=== PATIENT | male | born 1990 | race Hispanic/Latino ===

== ENCOUNTER 2020-01-05 12:48 | Inpatient (IN) | payer OTHER ==
[2020-01-05] MEDS ORDERED: SODIUM CHLORIDE 0.9% 1000 ML 1,000 ML IV ONE ×2 (13:02→16:20)
--- NOTE | 2020-01-05 13:02 | Emergency Department Report ---
ED Psych HPI - General Stated Complaint: DELIRIOUS Time Seen by Provider: 01/05/20 12:58 Source: patient, RN notes reviewed, old records reviewed Mode of arrival: Stretcher Limitations: Altered Mental Status - History of Present Illness Initial Comments: CC: "Delirium" HPI: Mr. Waldron is a 29 yo male with hx of marijuana and opioid abuse, HTN who presents with abnormal beahvior. He was admitted to [facility] 3 days ago. 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 He continues to be altered during 3 days of psychiatric inpatient tr eatment. Oriented to name only. He thinks he is at [facility]. He denies pain. Denies SI/HI. Has not slept according to sitter. Hx obtained from brother Nathen For the past couple of years, has abused pain pills. Used Suboxone and methadone in . Had a relapse. Took oxycontin, xanax and marijuana. Has been hallucinating for 2 days. Brother took him to [facility] on Thursday. He was then transferred from [facility]. No hx of IV drug abuse. No known hx of mental health disorder. Did use alcohol intermittently. MD Complaint: altered mental status -: Gradual, days(s) (3) Associated Psychiatric Symptoms: other (drug use) Quality: constant Improves With: none Worsens With: none Associated Symptoms: other (unknown) Treatments Prior to Arrival: other (treatment at [facility]) - Related Data Allergies Allergy/AdvReac Type Severity Reaction Status Date / Time No Known Allergies Allergy Verified 01/05/20 13:11 ED Review of Systems ROS: Stated complaint: DELIRIOUS Other details as noted in HPI Comment: Unobtainable due to pts medical conditions (altered mental status) ED Past Medical Hx - Social History Substance Use Type: Marijuana ED Physical Exam - General Limitations: Altered Mental Status General appearance: alert, in no apparent distress, appears intoxicated, other (disheveled dirty on feet, old healing bruises, sitting crossed leg on stretcher, appears to be grabbing at objects, will make eye contact, labile affect, seems slightly drowsy with slurred speech) - Head Head exam: Present: atraumatic, normocephalic - Eye Eye exam: Present: normal appearance - ENT ENT exam: Present: mucous membranes dry - Neck Neck exam: Present: normal inspection, full ROM - Respiratory Respiratory exam: Present: normal lung sounds bilaterally. Absent: respiratory distress, wheezes, rales, rhonchi - Cardiovascular Cardiovascular Exam: Present: regular rate, normal rhythm, normal heart sounds. Absent: systolic murmur, diastolic murmur, rubs, gallop - GI/Abdominal GI/Abdominal exam: Present: soft, normal bowel sounds. Absent: distended, tenderness, guarding, rebound - Rectal Rectal exam: Present: deferred - Back Exam Back exam: Present: normal inspection - Neurological Exam Neurological exam: Present: alert, altered - Psychiatric Psychiatric exam: Present: other (labile affect with laughing) - Skin Skin exam: Present: warm, intact. Absent: rash ED Course Vital Signs 01/05/20 01/05/20 14:48 16:14 Pulse Rate 116 H 115 H Respiratory 16 18 Rate Blood Pressure 136/109 151/95 [Left] O2 Sat by Pulse 96 96 Oximetry ED Medical Decision Making - Lab Data Result diagrams: 01/05/20 13:16 01/05/20 13:16 Laboratory Results - last 24 hr 01/05/20 01/05/20 01/05/20 13:16 13:16 13:16 WBC 12.1 H RBC 4.84 Hgb 14.7 Hct 40.9 MCV 85 MCH 30 MCHC 36 H RDW 12.6 L Plt Count 258 Lymph % (Auto) 12.8 L [place] % (Auto) 10.8 H Eos % (Auto) 0.1 Baso % (Auto) 1.2 Lymph # 1.5 [place] # 1.3 H Eos # 0.0 Baso # 0.2 H Seg Neutrophils % 75.1 H Seg Neutrophils # 9.1 H PT INR APTT Sodium 138 Potassium 3.7 Chloride 99.7 Carbon Dioxide 21 L Anion Gap 21 BUN 20 Creatinine 0.8 Estimated GFR > 60 BUN/Creatinine Ratio 25 Glucose 104 H Lactic Acid 0.90 Calcium 9.6 Total Bilirubin 1.20 AST 134 H ALT 73 H Alkaline Phosphatase 92 Ammonia Troponin T < 0.010 Total Protein 7.4 Albumin 4.0 Albumin/Globulin Ratio 1.2 TSH Urine Color Urine Turbidity Urine pH Ur Specific [place] Urine Protein Urine Glucose (UA) Urine Ketones Urine Blood Urine Nitrite Urine Bilirubin Urine Urobilinogen Ur Leukocyte Esterase Urine WBC (Auto) Urine RBC (Auto) Urine Bacteria (Auto) Urine Mucus Salicylates Urine Opiates Screen Urine Methadone Screen Acetaminophen Ur Barbiturates Screen Valproic Acid Ur Phencyclidine Scrn Ur Amphetamines Screen U Benzodiazepines Scrn Urine Cocaine Screen U Marijuana (THC) Screen Drugs of Abuse Note Plasma/Serum Alcohol 01/05/20 01/05/20 01/05/20 13:16 13:16 13:16 WBC RBC Hgb Hct MCV MCH MCHC RDW Plt Count Lymph % (Auto) [place] % (Auto) Eos % (Auto) Baso % (Auto) Lymph # [place] # Eos # Baso # Seg Neutrophils % Seg Neutrophils # PT INR APTT Sodium Potassium Chloride Carbon Dioxide Anion Gap BUN Creatinine Estimated GFR BUN/Creatinine Ratio Glucose Lactic Acid Calcium Total Bilirubin AST ALT Alkaline Phosphatase Ammonia 37.0 Troponin T Total Protein Albumin Albumin/Globulin Ratio TSH 0.892 Urine Color Urine Turbidity Urine pH Ur Specific [place] Urine Protein Urine Glucose (UA) Urine Ketones Urine Blood Urine Nitrite Urine Bilirubin Urine Urobilinogen Ur Leukocyte Esterase Urine WBC (Auto) Urine RBC (Auto) Urine Bacteria (Auto) Urine Mucus Salicylates < 0.3 L Urine Opiates Screen Urine Methadone Screen Acetaminophen Ur Barbiturates Screen Valproic Acid 66.1 Ur Phencyclidine Scrn Ur Amphetamines Screen U Benzodiazepines Scrn Urine Cocaine Screen U Marijuana (THC) Screen Drugs of Abuse Note Plasma/Serum Alcohol 01/05/20 01/05/20 01/05/20 13:16 13:16 14:25 WBC RBC Hgb Hct MCV MCH MCHC RDW Plt Count Lymph % (Auto) [place] % (Auto) Eos % (Auto) Baso % (Auto) Lymph # [place] # Eos # Baso # Seg Neutrophils % Seg Neutrophils # PT INR APTT Sodium Potassium Chloride Carbon Dioxide Anion Gap BUN Creatinine Estimated GFR BUN/Creatinine Ratio Glucose Lactic Acid Calcium Total Bilirubin AST ALT Alkaline Phosphatase Ammonia Troponin T Total Protein Albumin Albumin/Globulin Ratio TSH Urine Color Yellow Urine Turbidity Clear Urine pH 6.0 Ur Specific [place] 1.032 H Urine Protein 30 mg/dl Urine Glucose (UA) Neg Urine Ketones 80 Urine Blood Sm Urine Nitrite Neg Urine Bilirubin Neg Urine Urobilinogen 4.0 Ur Leukocyte Esterase Neg Urine WBC (Auto) 2.0 Urine RBC (Auto) 2.0 Urine Bacteria (Auto) 1+ Urine Mucus Few Salicylates Urine Opiates Screen Urine Methadone Screen Acetaminophen < 5.0 L Ur Barbiturates Screen Valproic Acid Ur Phencyclidine Scrn Ur Amphetamines Screen U Benzodiazepines Scrn Urine Cocaine Screen U Marijuana (THC) Screen Drugs of Abuse Note Plasma/Serum Alcohol < 0.01 01/05/20 01/05/20 14:25 14:49 WBC RBC Hgb Hct MCV MCH MCHC RDW Plt Count Lymph % (Auto) [place] % (Auto) Eos % (Auto) Baso % (Auto) Lymph # [place] # Eos # Baso # Seg Neutrophils % Seg Neutrophils # PT 15.2 H INR 1.23 H APTT 28.9 Sodium Potassium Chloride Carbon Dioxide Anion Gap BUN Creatinine Estimated GFR BUN/Creatinine Ratio Glucose Lactic Acid Calcium Total Bilirubin AST ALT Alkaline Phosphatase Ammonia Troponin T Total Protein Albumin Albumin/Globulin Ratio TSH Urine Color Urine Turbidity Urine pH Ur Specific [place] Urine Protein Urine Glucose (UA) Urine Ketones Urine Blood Urine Nitrite Urine Bilirubin Urine Urobilinogen Ur Leukocyte Esterase Urine WBC (Auto) Urine RBC (Auto) Urine Bacteria (Auto) Urine Mucus Salicylates Urine Opiates Screen Presumptive negative Urine Methadone Screen Presumptive negative Acetaminophen Ur Barbiturates Screen Presumptive negative Valproic Acid Ur Phencyclidine Scrn Presumptive negative Ur Amphetamines Screen Presumptive negative U Benzodiazepines Scrn Presumptive positive Urine Cocaine Screen Presumptive negative U Marijuana (THC) Screen Presumptive positive Drugs of Abuse Note Disclamer Plasma/Serum Alcohol - Radiology Data Radiology results: report reviewed, image reviewed AP portable chest radiograph: No acute findings according to radiology impression CT head of the brain: No acute intracranial abnormality - Medical Decision Making This is a 29-year-old male who presents with confabulation, visual hallucinations, delirium. Strongly suspect delirium tremens. As patient was observed in emergency department he developed tachycardia, increased agitation. After 8 mg of Ativan 2 mg of haloperidol he continued to confabulate and respond to internal stimuli. He is admitted to the ICU. Although brother did not endorse alcohol dependence, AST ALT ratio and elevated INR makes alcoholic liver disease very likely. No fever no meningismus to indicate infectious etiology such as meningitis. Admitted to the ICU in critical condition. Critical care attestation.: If time is entered above; I have spent that time in minutes in the direct care of this critically ill patient, excluding procedure time. ED Disposition Clinical Impression: Delirium tremens Disposition: OP ADMIT IP TO THIS HOSP Is pt being admited?: Yes Does the pt Need Aspirin: No Condition: Critical
[2020-01-05] MEDS ORDERED: LORazepam 2 MG/ML VIAL IM STA (13:17)
[2020-01-05] MEDS ORDERED: LORazepam 2 MG/ML VIAL ONE (13:20)
[2020-01-05] MEDS ORDERED: HALOPERIDOL LACTATE 5 MG/1 ML INJ IM ONE ×2 (13:40→16:34)
[2020-01-05 13:57] LABS: Basophils # (Auto) 0.2 K/mm3 (0.0-0.1); Basophils % (Auto) 1.2 % (0.0-1.8); Eosinophils % (Auto) 0.1 % (0.0-4.3); Lymphocytes # (Auto) 1.5 K/mm3 (1.2-5.4); Lymphocytes % (Auto) 12.8 % (13.4-35.0); Mean Corpuscular HGB Conc 36 % (32-34); Mean Corpuscular Volume 85 fl (84-94); Monocytes # (Auto) 1.3 K/mm3 (0.0-0.8); Monocytes % (Auto) 10.8 % (0.0-7.3); Platelet Count 258 K/mm3 (140-440); Red Blood Count 4.84 M/mm3 (3.65-5.03); Red Cell Distribution Width 12.6 % (13.2-15.2)
[2020-01-05 14:02] LABS: Alanine Aminotransferase 73 units/L (7-56); BUN/Creatinine Ratio 25; Blood Urea Nitrogen 20 mg/dL (9-20); Calcium 9.6 mg/dL (8.4-10.2); Hemolysis Index 18
[2020-01-05 14:13] LABS: Hematocrit 40.9 % (35.5-45.6); Hemoglobin 14.7 gm/dl (11.8-15.2)
--- NOTE | 2020-01-05 14:50 | XRay Report ---
CHEST 1 VIEW 01/05/2020 1:43 PM INDICATION / CLINICAL INFORMATION: Altered Mental Status. COMPARISON: None available. FINDINGS: SUPPORT DEVICES: None. HEART / MEDIASTINUM: No significant abnormality. LUNGS / PLEURA: No significant pulmonary or pleural abnormality. No pneumothorax. ADDITIONAL FINDINGS: No significant additional findings. IMPRESSION: 1. No acute findings. Signer Name: Moe Cortez MD Signed: 01/05/2020 2:46 PM Workstation Name: [id number]
[2020-01-05 14:52] LABS: Bacteria,Urine 1+ /HPF (Negative); Bilirubin,Urine NEG (Negative); Blood,Urine SM (Negative); Color,Urine Yellow (Yellow); Mucus,Urine FEW /HPF
[2020-01-05] MEDS ORDERED: diphenhydrAMINE 50 MG/ML VIAL IV ONE (14:54)
[2020-01-05 14:59] LABS: Amphetamine Screen,Urine PRESUMPTIVE NEGATIVE; Cocaine Screen,Urine PRESUMPTIVE NEGATIVE; Methadone Screen,Urine PRESUMPTIVE NEGATIVE; Opiate Screen,Urine PRESUMPTIVE NEGATIVE
[2020-01-05 15:20] LABS: Benzodiazepines Screen,Urine PRESUMPTIVE POSITIVE; Cannabinoid Screen,Urine PRESUMPTIVE POSITIVE
[2020-01-05 15:26] LABS: INR 1.23 (0.87-1.13)
[2020-01-05 15:27] LABS: Partial Thromboplastin Time 28.9 Sec. (24.2-36.6)
[2020-01-05] MEDS ORDERED: LORazepam 2 MG/ML VIAL IV ONE ×4 (16:34→17:44)
[2020-01-05] MEDS ORDERED: ZIPRASIDONE MESYLATE 20 MG VIAL IM ONE ×2 (18:18→18:31)
[2020-01-05] MEDS ORDERED: WATER FOR INJ Sterile (PF) 10 ML ONE (18:19)
--- NOTE | 2020-01-05 18:27 | Cat Scan Report ---
CT head/brain wo con INDICATION / CLINICAL INFORMATION: 29 years Male; Altered Mental Status. TECHNIQUE: Routine CT head without contrast. All CT scans at this location are performed using CT dos e reduction for ALARA by means of automated exposure control. COMPARISON: None. FINDINGS: BRAIN / INTRACRANIAL CONTENTS: The motion degrades the image quality despite repeat imaging. However, the brain appears to demonstrate appropriate attenuation. The ventricular system is within normal li mits in size and configuration. There is no clear CT evidence of acute intracranial hemorrhage or sig nificant mass effect. ORBITS: No significant abnormality of visualized orbits. SINUSES / MASTOIDS: No significant abnormality the visualized paranasal sinuses or mastoid air cells. CRANIOCERVICAL JUNCTION: No significant abnormality. ADDITIONAL FINDINGS: None. IMPRESSION: 1. There is no CT evidence of acute intracranial process. Signer Name: Romaine Soni MD Signed: 01/05/2020 6:23 PM Workstation Name: [id number]
--- NOTE | 2020-01-05 23:52 | Event Note ---
Date: 01/05/20 Acute psychosis EtOH withdrawal See history and physical in the reports
[2020-01-06] MEDS ORDERED: ONDANSETRON 4 MG/2 ML INJ IV PRN
[2020-01-06] MEDS ORDERED: HYDROmorphone 1 MG/1 ML INJ IV PRN
[2020-01-06] MEDS ORDERED: ACETAMINOPHEN 325 MG TAB PO PRN
[2020-01-06] MEDS ORDERED: LORazepam 2 MG/ML VIAL IV PRN (00:26)
--- NOTE | 2020-01-06 00:42 | History and Physical Report ---
CHIEF COMPLAINT: Severe confusion, agitation and delirium. HISTORY OF PRESENT ILLNESS: A 29-year-old male with history of marijuana and opioid abuse and alcohol abuse, admitted to [facility] for treatment of polysubstance abuse and dependence 3 days ago. The patient diagnosed with drug-induced psychosis due to marijuana. The patient sent to the ER because of severe agitation and delirium. The patient is very confused, tremulous and delirious. Denies suicidal or homicidal ideation. PAST MEDICAL HISTORY: None. SOCIAL HISTORY: Marijuana, alcohol and opioid abuse. PAST SURGICAL HISTORY: None. FAMILY HISTORY: Not available. REVIEW OF SYSTEMS: Significant for severe confusion and delirium. Tremulous. Review of systems could not be identified. Very delirious. PHYSICAL EXAMINATION: GENERAL: Young male, severely agitated and fighting with the nursing staff. VITAL SIGNS: Temperature is 97.8, pulse is 88, and blood pressure 118/84. HEENT: Unremarkable. Pupils are equal and reactive. NECK: Supple, no lymphadenopathy, no thyromegaly. LUNGS: Clear to auscultation and percussion. Good air entry. CARDIOVASCULAR: S1, S2 heard. No gallop, no murmur, no rub. Apical impulse in left fifth intercostal space and midclavicular line. ABDOMEN: Soft and benign. No hepatosplenomegaly. No guarding, no rigidity. Hernial orifices are normal. EXTREMITIES: Good pedal pulses. No pedal edema. SKIN: Normal. CENTRAL NERVOUS SYSTEM: Very agitated and delirious. Tremulous. Alert, but not oriented. Fighting with the nursing staff. LABORATORY DATA: White count is 12,100, H and H is 14.7 and 40.9, and platelet count is 258,000. Electrolytes are normal. Glucose is 104, AST is 134, and ALT is 173. Urine is normal. Drug screen is positive for marijuana and benzos. CT of the head, no acute abnormalities. Chest x-ray shows no acute findings. ASSESSMENT AND PLAN: 1. Acute psychosis secondary to drug withdrawal including marijuana, opioids and alcohol. 2. ETOH dependence. A patient is a closet drinker. The patient has transaminitis. Damage to the liver from alcohol. We will check hepatitis profile. 3. ETOH dependence and delirium tremens. IV Ativan and IV fluids and Geodon. Geodon 20 q.4 hours p.r.n. __ for 2-3 doses. Continue Ativan in the meantime. 4. Deep venous thrombosis prophylaxis, heparin 5000 q. 12 hours. JOB# [id number] VSM/NTS
[2020-01-06] MEDS: SODIUM CHLORIDE 0.9% 1000 ML 1,000 ML IV SCH ×3 (00:58→18:48)
[2020-01-06] MEDS: LORazepam 2 MG/ML VIAL IV PRN ×2 (00:59→18:48)
[2020-01-06] MEDS: FAMOTIDINE 20 MG/2 ML INJ IV SCH ×3 (01:42→22:01)
[2020-01-06] MEDS ORDERED: WATER FOR INJ Sterile (PF) 0 ML ONE (02:10)
[2020-01-06] MEDS: ZIPRASIDONE MESYLATE 20 MG VIAL IM PRN ×2 (02:13→10:47)
[2020-01-06] MEDS ORDERED: WATER FOR INJ Sterile (PF) 10 ML ONE (04:50)
[2020-01-06] MEDS ORDERED: FLU VACC QUAD 2019-20 (3 YR UP)/PF 60 MCG/0.5 ML SYRINGE IM ONE (12:00)
--- NOTE | 2020-01-06 14:15 | Progress Note ---
Subjective Date of service: 01/06/20 Interval history: patient is seen ansd assessed on neuro cosult did get excellent hx from the direct care staffer as patient has just gottent alanten lidia for acote psychosis and is resting comfortabley... suspect ply drug abuse opiates/ Bnezo'e/ Alcohol and TCH plan to follow obviously risk of seizures is very high thanks I have dictated a full note Objective - Vital Sign Vital Signs - 12hr 01/06/20 01/06/20 01/06/20 03:07 03:08 03:10 Temperature Pulse Rate 101 H 100 H Pulse Rate [ 100 H From Monitor] Respiratory 25 H 25 H Rate Blood Pressure 125/63 125/63 O2 Sat by Pulse 98 97 98 Oximetry 01/06/20 01/06/20 01/06/20 03:24 03:28 03:30 Temperature 98.8 F Pulse Rate 104 H 103 H Pulse Rate [ From Monitor] Respiratory 23 23 Rate Blood Pressure 123/68 O2 Sat by Pulse 97 98 Oximetry 01/06/20 01/06/20 01/06/20 03:40 03:50 04:00 Temperature Pulse Rate 107 H 101 H 86 Pulse Rate [ From Monitor] Respiratory 36 H 23 21 Rate Blood Pressure 123/68 125/63 125/78 O2 Sat by Pulse 97 95 98 Oximetry 01/06/20 01/06/20 01/06/20 04:10 04:20 04:30 Temperature Pulse Rate 96 H 98 H 101 H Pulse Rate [ From Monitor] Respiratory 29 H 24 25 H Rate Blood Pressure 125/78 125/78 127/70 O2 Sat by Pulse 98 98 98 Oximetry 01/06/20 01/06/20 01/06/20 04:40 04:50 05:00 Temperature Pulse Rate 101 H 102 H 102 H Pulse Rate [ From Monitor] Respiratory 24 23 24 Rate Blood Pressure 127/70 127/70 131/60 O2 Sat by Pulse 99 98 98 Oximetry 01/06/20 01/06/20 01/06/20 05:10 05:20 05:30 Temperature Pulse Rate 98 H 97 H 90 Pulse Rate [ From Monitor] Respiratory 25 H 21 19 Rate Blood Pressure 131/60 131/60 145/84 O2 Sat by Pulse 98 99 99 Oximetry 01/06/20 01/06/20 01/06/20 05:41 05:51 06:00 Temperature Pulse Rate 112 H 96 H 98 H Pulse Rate [ From Monitor] Respiratory 14 19 14 Rate Blood Pressure 131/60 131/60 128/77 O2 Sat by Pulse 99 98 98 Oximetry 01/06/20 01/06/20 01/06/20 06:11 06:21 06:30 Temperature Pulse Rate 97 H 103 H 83 Pulse Rate [ From Monitor] Respiratory 19 20 18 Rate Blood Pressure 145/84 145/84 136/85 O2 Sat by Pulse 98 98 99 Oximetry 01/06/20 01/06/20 01/06/20 06:41 06:51 07:00 Temperature 98.6 F Pulse Rate 89 98 H 96 H Pulse Rate [ 101 H From Monitor] Respiratory 21 13 16 Rate Blood Pressure 136/85 136/85 138/83 O2 Sat by Pulse 98 98 99 Oximetry 01/06/20 01/06/20 01/06/20 07:11 07:21 07:30 Temperature Pulse Rate 94 H 98 H 81 Pulse Rate [ From Monitor] Respiratory 18 19 18 Rate Blood Pressure 138/83 138/83 137/82 O2 Sat by Pulse 98 98 99 Oximetry 01/06/20 01/06/20 01/06/20 07:41 07:51 08:01 Temperature Pulse Rate 93 H 108 H 124 H Pulse Rate [ From Monitor] Respiratory 17 14 15 Rate Blood Pressure 137/82 137/82 137/82 O2 Sat by Pulse 99 97 99 Oximetry 01/06/20 01/06/20 01/06/20 08:11 08:18 08:21 Temperature 98.0 F Pulse Rate 116 H 102 H Pulse Rate [ From Monitor] Respiratory 17 15 Rate Blood Pressure 131/90 131/90 O2 Sat by Pulse 100 99 Oximetry 01/06/20 01/06/20 01/06/20 08:30 08:41 08:51 Temperature Pulse Rate 113 H 124 H 130 H Pulse Rate [ From Monitor] Respiratory 19 16 11 L Rate Blood Pressure 126/62 126/62 126/62 O2 Sat by Pulse 98 93 Oximetry 01/06/20 01/06/20 01/06/20 09:00 09:11 09:21 Temperature Pulse Rate 119 H 137 H 139 H Pulse Rate [ From Monitor] Respiratory 14 18 25 H Rate Blood Pressure 130/81 130/81 126/62 O2 Sat by Pulse Oximetry 01/06/20 01/06/20 01/06/20 09:31 09:41 09:51 Temperature Pulse Rate 131 H 143 H 137 H Pulse Rate [ From Monitor] Respiratory 14 19 13 Rate Blood Pressure 126/62 126/62 126/62 O2 Sat by Pulse 98 90 Oximetry 01/06/20 01/06/20 01/06/20 10:00 10:01 10:11 Temperature Pulse Rate 136 H 120 H 124 H Pulse Rate [ From Monitor] Respiratory 13 15 Rate Blood Pressure 127/54 127/54 O2 Sat by Pulse 100 100 Oximetry 01/06/20 01/06/20 01/06/20 10:21 10:31 10:41 Temperature Pulse Rate 117 H 132 H 118 H Pulse Rate [ From Monitor] Respiratory 16 22 12 Rate Blood Pressure 127/54 127/54 140/81 O2 Sat by Pulse 100 100 100 Oximetry 01/06/20 01/06/20 01/06/20 10:51 11:00 11:11 Temperature Pulse Rate 134 H 123 H 120 H Pulse Rate [ 136 H From Monitor] Respiratory 15 13 16 Rate Blood Pressure 140/81 145/84 145/84 O2 Sat by Pulse 97 99 Oximetry 01/06/20 01/06/20 01/06/20 11:21 11:31 11:41 Temperature Pulse Rate 127 H 116 H 136 H Pulse Rate [ From Monitor] Respiratory 18 22 14 Rate Blood Pressure 145/84 152/80 152/80 O2 Sat by Pulse 83 L Oximetry 01/06/20 01/06/20 01/06/20 11:51 12:00 12:01 Temperature 98.4 F Pulse Rate 127 H 111 H Pulse Rate [ From Monitor] Respiratory 28 H 16 Rate Blood Pressure 152/80 147/90 O2 Sat by Pulse 78 L 95 Oximetry 01/06/20 01/06/20 01/06/20 12:11 12:21 12:31 Temperature Pulse Rate 108 H 106 H 100 H Pulse Rate [ From Monitor] Respiratory 26 H 26 H 27 H Rate Blood Pressure 147/90 152/80 132/65 O2 Sat by Pulse 95 95 96 Oximetry 01/06/20 01/06/20 01/06/20 12:41 12:51 13:00 Temperature Pulse Rate 104 H 93 H 110 H Pulse Rate [ From Monitor] Respiratory 24 25 H 25 H Rate Blood Pressure 132/65 132/65 131/69 O2 Sat by Pulse 96 97 98 Oximetry - Laboratory Findings CBC and BMP: 01/05/20 13:16 01/05/20 13:16 Abnormal Lab Findings: Abnormal Labs 01/05/20 01/05/20 01/05/20 13:16 13:16 13:16 WBC 12.1 H MCHC 36 H RDW 12.6 L Lymph % (Auto) 12.8 L [place] % (Auto) 10.8 H [place] # 1.3 H Baso # 0.2 H Seg Neutrophils % 75.1 H Seg Neutrophils # 9.1 H PT INR Carbon Dioxide 21 L Glucose 104 H AST 134 H ALT 73 H Ur Specific [place] Salicylates < 0.3 L Acetaminophen 01/05/20 01/05/20 01/05/20 13:16 14:25 14:49 WBC MCHC RDW Lymph % (Auto) [place] % (Auto) [place] # Baso # Seg Neutrophils % Seg Neutrophils # PT 15.2 H INR 1.23 H Carbon Dioxide Glucose AST ALT Ur Specific [place] 1.032 H Salicylates Acetaminophen < 5.0 L
--- NOTE | 2020-01-06 17:30 | Progress Note ---
Assessment and Plan - Patient Problems (1) Acute psychosis Current Visit: Yes Status: Acute Plan to address problem: Patient with acute psychosis started on Geodon Depakote Ativan as needed seems to have stabilized patient at this particular time. No longer in DTs. Patient no longer shaking comfortable sleeping. Continue to monitor. Stable for tr ansfer to [facility]. Patient still requiring restraints now. (2) Delirium tremens Current Visit: Yes Status: Acute Plan to address problem: Delirium tremors being treated with CIWA protocol. Patient doing well. Calm comfortable. Continue present management. Transfer to the floor. Spoke with pulmonary critical care about patient's condition (3) Alcohol abuse Current Visit: Yes Status: Acute Plan to address problem: History of alcohol abuse use. Continue supportive care aggressive IV hydration. History Interval history: Patient 29 years old presents with altered mental status drug-induced psychosis. Patient was being evaluated and treated for opioid and alcohol dependency and abuse. Patient developed severe agitation and delusions thought to be secondary to drug-induced psychosis was transferred to the unit and stabilized. At present patient is just received Geodon is comfortable sleeping. Unable to gotten much history. Did gain history from the brother twin brother who states that this is been going on for approximately 4 to 5 days. Prior to that patient do not have any episodes of psychosis. Does mention patient has been in drug and alcohol activity before. Patient appears to be calm now no acute distress after Geodon. Difficult to obtain any history directly from the patient. Hospitalist Physical - Constitutional Vitals: Temp Pulse Resp BP Pulse Ox 98.4 F 110 H 25 H 131/69 98 01/06/20 12:00 01/06/20 13:00 01/06/20 13:00 01/06/20 13:00 01/06/20 13:00 General appearance: Present: no acute distress - EENT Eyes: Present: PERRL - Neck Neck: Present: supple, normal ROM - Respiratory Respiratory: bilateral: CTA - Cardiovascular Rhythm: regular - Extremities Extremities: no ischemia, pulses intact, No edema, normal temperature, normal color Peripheral Pulses: within normal limits - Abdominal General gastrointestinal: soft, non-tender, non-distended, no hepatomegaly, no splenomegaly - Integumentary Integumentary: Present: clear, warm, dry - Psychiatric Psychiatric: other (Somber mood no longer agitated with Geodon.) - Neurologic Neurologic: moves all extremities Results - Labs CBC & Chem 7: 01/05/20 13:16 01/05/20 13:16 Labs: Laboratory Last Values WBC 12.1 K/mm3 (4.5-11.0) H 01/05/20 13:16 RBC 4.84 M/mm3 (3.65-5.03) 01/05/20 13:16 Hgb 14.7 gm/dl (11.8-15.2) 01/05/20 13:16 Hct 40.9 % (35.5-45.6) 01/05/20 13:16 MCV 85 fl (84-94) 01/05/20 13:16 MCH 30 pg (28-32) 01/05/20 13:16 MCHC 36 % (32-34) H 01/05/20 13:16 RDW 12.6 % (13.2-15.2) L 01/05/20 13:16 Plt Count 258 K/mm3 (140-440) 01/05/20 13:16 Lymph % (Auto) 12.8 % (13.4-35.0) L 01/05/20 13:16 [place] % (Auto) 10.8 % (0.0-7.3) H 01/05/20 13:16 Eos % (Auto) 0.1 % (0.0-4.3) 01/05/20 13:16 Baso % (Auto) 1.2 % (0.0-1.8) 01/05/20 13:16 Lymph # 1.5 K/mm3 (1.2-5.4) 01/05/20 13:16 [place] # 1.3 K/mm3 (0.0-0.8) H 01/05/20 13:16 Eos # 0.0 K/mm3 (0.0-0.4) 01/05/20 13:16 Baso # 0.2 K/mm3 (0.0-0.1) H 01/05/20 13:16 Seg Neutrophils % 75.1 % (40.0-70.0) H 01/05/20 13:16 Seg Neutrophils # 9.1 K/mm3 (1.8-7.7) H 01/05/20 13:16 PT 15.2 Sec. (12.2-14.9) H 01/05/20 14:49 INR 1.23 (0.87-1.13) H 01/05/20 14:49 APTT 28.9 Sec. (24.2-36.6) 01/05/20 14:49 Sodium 138 mmol/L (137-145) 01/05/20 13:16 Potassium 3.7 mmol/L (3.6-5.0) 01/05/20 13:16 Chloride 99.7 mmol/L (98-107) 01/05/20 13:16 Carbon Dioxide 21 mmol/L (22-30) L 01/05/20 13:16 Anion Gap 21 mmol/L 01/05/20 13:16 BUN 20 mg/dL (9-20) 01/05/20 13:16 Creatinine 0.8 mg/dL (0.8-1.5) 01/05/20 13:16 Estimated GFR > 60 ml/min 01/05/20 13:16 BUN/Creatinine Ratio 25 % 01/05/20 13:16 Glucose 104 mg/dL (75-100) H 01/05/20 13:16 Lactic Acid 0.90 mmol/L (0.7-2.0) 01/05/20 13:16 Calcium 9.6 mg/dL (8.4-10.2) 01/05/20 13:16 Total Bilirubin 1.20 mg/dL (0.1-1.2) 01/05/20 13:16 AST 134 units/L (5-40) H 01/05/20 13:16 ALT 73 units/L (7-56) H 01/05/20 13:16 Alkaline Phosphatase 92 units/L (35-129) 01/05/20 13:16 Ammonia 45.0 umol/L (25-60) 01/06/20 00:07 Troponin T < 0.010 ng/mL (0.00-0.029) 01/05/20 13:16 Total Protein 7.4 g/dL (6.3-8.2) 01/05/20 13:16 Albumin 4.0 g/dL (3.9-5) 01/05/20 13:16 Albumin/Globulin Ratio 1.2 % 01/05/20 13:16 Amylase 51 units/L (27-131) 01/06/20 00:07 TSH 0.892 mlU/mL (0.270-4.200) 01/05/20 13:16 Urine Color Yellow (Yellow) 01/05/20 14:25 Urine Turbidity Clear (Clear) 01/05/20 14:25 Urine pH 6.0 (5.0-7.0) 01/05/20 14:25 Ur Specific [place] 1.032 (1.003-1.030) H 01/05/20 14:25 Urine Protein 30 mg/dl mg/dL (Negative) 01/05/20 14:25 Urine Glucose (UA) Neg mg/dL (Negative) 01/05/20 14:25 Urine Ketones 80 mg/dL (Negative) 01/05/20 14:25 Urine Blood Sm (Negative) 01/05/20 14:25 Urine Nitrite Neg (Negative) 01/05/20 14:25 Urine Bilirubin Neg (Negative) 01/05/20 14:25 Urine Urobilinogen 4.0 mg/dL (<2.0) 01/05/20 14:25 Ur Leukocyte Esterase Neg (Negative) 01/05/20 14:25 Urine WBC (Auto) 2.0 /HPF (0.0-6.0) 01/05/20 14:25 Urine RBC (Auto) 2.0 /HPF (0.0-6.0) 01/05/20 14:25 Urine Bacteria (Auto) 1+ /HPF (Negative) 01/05/20 14:25 Urine Mucus Few /HPF 01/05/20 14:25 Salicylates < 0.3 mg/dL (2.8-20.0) L 01/05/20 13:16 Urine Opiates Screen Presumptive negative 01/05/20 14:25 Urine Methadone Screen Presumptive negative 01/05/20 14:25 Acetaminophen < 5.0 ug/mL (10.0-30.0) L 01/05/20 13:16 Ur Barbiturates Screen Presumptive negative 01/05/20 14:25 Valproic Acid 66.1 ug/mL (50-100) 01/05/20 13:16 Ur Phencyclidine Scrn Presumptive negative 01/05/20 14:25 Ur Amphetamines Screen Presumptive negative 01/05/20 14:25 U Benzodiazepines Scrn Presumptive positive 01/05/20 14:25 Urine Cocaine Screen Presumptive negative 01/05/20 14:25 U Marijuana (THC) Screen Presumptive positive 01/05/20 14:25 Drugs of Abuse Note Disclamer 01/05/20 14:25 Plasma/Serum Alcohol < 0.01 % (0-0.07) 01/05/20 13:16 Microbiology: Microbiology 01/05/20 14:25 Urine,Clean Catch Urine Culture - Preliminary NO GROWTH AFTER 24 HOURS Dixon/IV: Voiding Method Condom Catheter IV Catheter Type [Left Hand] Peripheral IV Active Medications - Current Medications Current Medications: Generic Name Dose Route Start Last Admin Trade Name Freq PRN Reason Stop Dose Admin Acetaminophen 650 mg 01/06/20 00:00 Tylenol PO Q4H PRN Pain MILD(1-3)/Fever >100.5/HERNANDEZ Famotidine 20 mg 01/06/20 01:00 01/06/20 09:23 Pepcid IV 20 mg BID FLAVIO Administration Hydromorphone HCl 0.25 mg 01/06/20 00:00 Dilaudid IV Q3H PRN Pain, Moderate (4-6) Sodium Chloride 1,000 mls @ 125 mls/hr 01/06/20 00:00 01/06/20 09:22 Nacl 0.9% 1000 Ml IV 125 mls/hr DIRECT FLAVIO Administration Lorazepam 2 mg 01/06/20 00:26 01/06/20 00:59 Ativan IV 2 mg Q1H PRN Administration CIWA-Ar 8-15 Lorazepam 4 mg 01/06/20 00:26 01/06/20 01:37 Ativan IV 4 mg Q1H PRN Administration CIWA-Ar 16-25 Ondansetron HCl 4 mg 01/06/20 00:00 Zofran IV Q8H PRN Nausea And Vomiting Sodium Chloride 10 ml 01/06/20 10:00 01/06/20 09:23 Sodium Chloride Flush Syringe 10 Ml IV 10 ml BID FLAVIO Administration Sodium Chloride 10 ml 01/06/20 00:00 Sodium Chloride Flush Syringe 10 Ml IV PRN PRN LINE FLUSH
--- NOTE | 2020-01-06 18:45 | Consultation ---
HISTORY OF PRESENT ILLNESS: This is a 29-year-old white male that enters [facility] as an emergency admission for altered mental status and encephalopathy. The patient had acute psychosis and was in alcohol withdrawal, was transferred from [place], where he was an inpatient. Reviewing the notes, he had been seen by Dr. Leary, who had felt that he had alcohol withdrawal syndrome. ED evaluation done on 01/05/2020 indicates the patient had been involving and abusing opiates and benzodiazepines and also THC. He is admitted to [facility] 3 days prior. He had been also diagnosed as having a drug-induced psychosis, continues to have altered mental status with psychotic episodes. Had not slept in days according to his sister. When he was admitted to the hospital, the history was that he had taken OxyContin and Xanax, had used Suboxone, methadone in the past. Brother had taken him to [facility], the previous Thursday. He was not known to have mental health history symptoms previously. I have reviewed, after he was admitted, I did have the opportunity to review his CT scan of the head and this was entirely unremarkable. Christie and white matter normal. The ventricular system is normal in size and shape for the patient's stated age and the pineal gland was calcified and in normal position. Posterior fossa structures were unremarkable. I did not see any subfrontal lesions or any lesions present within the anterior temporal lobe that would account for aberrant behavior. My examination reveals a white male, currently sedated after receiving a dose of Geodon for agitation, which the nurse had given prior to my arrival. His blood pressure at present is 131/69, his pulse rate is 110, his respirations are 25. His O2 oxygen saturations are 98%. He moves all extremities well. He has a supple neck. I do not notice any seizure activity. The patient's ocular movements are full. Pupils briskly reactive to light. Motor tone is symmetrically reduced after having been receiving antipsychotic agent. IMPRESSION: This patient has an acute encephalopathy, multifactorial. Obviously, the issue is that he has polysubstance abuse, had been taking Suboxone, methadone and OxyContin. It also is clear the patient was probably in benzodiazepine withdrawal and from our history there was also THC involved. I agree with the use of Geodon, the patient's condition will be monitored closely. After he stabilizes, an MRI scan of the brain may be necessary or EEG, have to monitor closely for seizures given the fact benzodiazepine withdrawal can induce seizure activity. JOB# [id number] SAUL/TAMIKA
[2020-01-06 19:15] VITALS: BP 127/67
[2020-01-07] MEDS: SODIUM CHLORIDE 0.9% 1000 ML 1,000 ML IV SCH (04:43)
[2020-01-07 06:25] LABS: Basophils # (Auto) 0.1 K/mm3 (0.0-0.1); Basophils % (Auto) 0.8 % (0.0-1.8); Eosinophils # (Auto) 0.2 K/mm3 (0.0-0.4); Eosinophils % (Auto) 2.4 % (0.0-4.3); Hematocrit 43.6 % (35.5-45.6); Hemoglobin 15.1 gm/dl (11.8-15.2); Lymphocytes # (Auto) 1.7 K/mm3 (1.2-5.4); Lymphocytes % (Auto) 23.1 % (13.4-35.0); Mean Corpuscular HGB Conc 35 % (32-34); Mean Corpuscular Volume 86 fl (84-94); Monocytes # (Auto) 0.8 K/mm3 (0.0-0.8); Monocytes % (Auto) 10.3 % (0.0-7.3); Platelet Count 283 K/mm3 (140-440); Red Blood Count 5.05 M/mm3 (3.65-5.03); Red Cell Distribution Width 12.8 % (13.2-15.2)
[2020-01-07 06:45] LABS: Alanine Aminotransferase 55 units/L (7-56); Albumin 3.6 g/dL (3.9-5); BUN/Creatinine Ratio 10; Blood Urea Nitrogen 6 mg/dL (9-20); Calcium 9.3 mg/dL (8.4-10.2); Hemolysis Index 14
[2020-01-07] MEDS: FAMOTIDINE 20 MG/2 ML INJ IV SCH (10:04)
--- NOTE | 2020-01-07 12:23 | Consultation ---
History of Present Illness - Reason for Consult Consult date: 01/07/20 Reason for consult: agitation, DT's - History of Present Psychiatric Illness I reviewed the patient's medical record and discussed the patient's progress with the nursing staff. The nurse note states the patient is A&O x4, CIWA score 1. atg architect removed and aware. Romaine Downing is a 29y/o male patient who was admitted into the hospital for aggression and DTs, per chart. During my interview with the patient today, he is pleasant, talkative and polite. He is a/o x 3. The patient states he "smoked some weed and not sure if it was laced with anything." He states "at the time I was agitated, uncoordinated and didn't know where I was." He then states, "but I'm 110% better." He describes his mood as "good." He denies any other illicit drug use, although his UDS was positive for cocaine. The patient denies SI/HI, and states "I never have been, now or never." He states, "suicide is something I'd never do. I'm too arrogant for that, then I'm a Rastafarian." The patient also denies hallucinations of any kind. He says he sees a psychiatrist regularly for "suboxone treatment." He says he was once "addicted to painkillers." He says his appetite is "great" and he sleeps "well." PAST PSYCHIATRIC HISTORY: Diagnoses: Addiction to painkillers Suicide attempts or Self-harm behavior: Denies Prior psychiatric hospitalizations: Once Substance Abuse history: THC, Painkillers Previous psychiatric medications tried: Suboxone Outpatient treatment: Yes PAST MEDICAL HISTORY: None reported Family Psychiatric History: None reported or documented SOCIAL HISTORY Current living status: [facility] 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 Good eye contact Mood: "good" Affect: Congruent with stated mood Speech: Normal tone and pace Thought Process: Goal directed Thought Content: Suicidal Ideation: Denies Homicidal Ideation: Denies Hallucinations: Denies Delusions: Denies Insight and Judgment: Limited Memory/Cognition: Limited Assessment Substance Induced Mood Disorder Plan MEDICATIONS: No medications prescribed at this time Risks, benefits and alternatives of medications discussed with the patient, questions answered and consent obtained from patient. PSYCHOTHERAPY: Supportive psychotherapy provided MEDICAL: Per primary team DELIRIUM PRECAUTIONS: Please re-orient patient frequently, keep lights on during the day, and minimize benzodiazepines and opiates as these medications could worsen patient's confusion. 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 DISPOSITION: The patient does not meet the requirement for acute inpatient psychiatric hospitalization at this time. He may discharge home once medically clear. The treatment plan was explained to the patient. He verbalizes understanding and agreement of plan. The patient is to abstain from all illicit drugs and alcohol. He is to follow up with outpatient psych or primary in 7 to 14 days. Will sign off. Thank you for the consult. Please contact with any questions or concerns. Medications and Allergies Allergies Allergy/AdvReac Type Severity Reaction Status Date / Time No Known Allergies Allergy Verified 01/05/20 13:11 Home Medications Medication Instructions Recorded Confirmed Last Taken Type No Known Home Medications [No 01/06/20 01/06/20 Unknown History Reported Home Medications] Active Meds: Active Medications Acetaminophen (Tylenol) 650 mg PO Q4H PRN PRN Reason: Pain MILD(1-3)/Fever >100.5/HERNANDEZ Famotidine (Pepcid) 20 mg IV BID [facility] Last Admin: 01/07/20 10:04 Dose: 20 mg Documented by: Sodium Chloride (Nacl 0.9% 1000 Ml) 1,000 mls @ 125 mls/hr IV DIRECT [facility] Last Admin: 01/07/20 04:43 Dose: 125 mls/hr Documented by: Lorazepam (Ativan) 2 mg IV Q1H PRN PRN Reason: REEDWA-Ar 8-15 Last Admin: 01/06/20 18:48 Dose: 2 mg Documented by: Lorazepam (Ativan) 4 mg IV Q1H PRN PRN Reason: CIWA-Ar 16-25 Last Admin: 01/06/20 01:37 Dose: 4 mg Documented by: Ondansetron HCl (Zofran) 4 mg IV Q8H PRN PRN Reason: Nausea And Vomiting Sodium Chloride (Sodium Chloride Flush Syringe 10 Ml) 10 ml IV BID FLAVIO Last Admin: 01/07/20 10:04 Dose: 10 ml Documented by: Sodium Chloride (Sodium Chloride Flush Syringe 10 Ml) 10 ml IV PRN PRN PRN Reason: LINE FLUSH Mental Status Exam - Vital signs Last Vital Signs Temp 97.6 F 01/07/20 11:06 Pulse 95 H 01/07/20 11:06 Resp 16 01/07/20 11:06 BP 130/86 01/07/20 11:06 Pulse Ox 96 01/07/20 11:06 Results Result Diagrams: 01/07/20 05:49 01/07/20 05:49 Abnormal lab results 01/07/20 01/07/20 Range/Units 05:49 05:49 RBC 5.05 H (3.65-5.03) M/mm3 MCHC 35 H (32-34) % RDW 12.8 L (13.2-15.2) % [place] % (Auto) 10.3 H (0.0-7.3) % BUN 6 L (9-20) mg/dL Creatinine 0.6 L (0.8-1.5) mg/dL AST 56 H (5-40) units/L Albumin 3.6 L (3.9-5) g/dL All other labs normal.
--- NOTE | 2020-01-07 12:31 | Event Note ---
Date: 01/07/20 Patient medically cleared for discharge.
--- NOTE | 2020-01-07 12:32 | Discharge Summary ---
Providers - Providers Date of Admission: 01/05/20 18:18 Date of discharge: 01/07/20 Attending physician: COLBY BENDER 01/06/20 00:00 Consult to Physician [CONS] Routine Comment: Consulting Provider: GREY AMBROSIO Physician Instructions: Reason For Exam: encephalopathy 01/06/20 00:07 Consult to Physician [CONS] Routine Comment: Consulting Provider: GEORGETTE TRAVIS Physician Instructions: Reason For Exam: DT's Hospitalization Condition: Fair Disposition: DC/TX-65 PSY HOSP/PSY UNIT Exam - Constitutional Vitals: Temp Pulse Resp BP Pulse Ox 97.6 F 95 H 16 130/86 96 01/07/20 11:06 01/07/20 11:06 01/07/20 11:06 01/07/20 11:06 01/07/20 11:06 Plan Diet: regular Additional Instructions: 1.Follow up with PCP in 1 week. 2.Avoid marijuana and street drugs. 3.Follow up with outpatient Psych in 1 week. Follow up with: ANILA OSEI [Other] - 3-5 Days
--- NOTE | 2020-01-07 13:32 | Progress Note ---
Subjective Date of service: 01/07/20 Interval history: patient moved to floor from CCU nop further seizures have occured no overt problems with benzo withdrawal can go back to [place] with psych clearance Objective - Vital Sign Vital Signs - 12hr 01/07/20 01/07/20 01/07/20 01:41 02:01 02:19 Temperature Pulse Rate 139 H Pulse Rate [ From Monitor] Respiratory 29 H Rate Blood Pressure 116/69 110/71 110/71 O2 Sat by Pulse 37 L Oximetry 01/07/20 01/07/20 01/07/20 02:21 02:30 02:41 Temperature Pulse Rate 90 77 Pulse Rate [ From Monitor] Respiratory Rate Blood Pressure 110/71 120/81 110/71 O2 Sat by Pulse 59 L 59 L Oximetry 01/07/20 01/07/20 01/07/20 02:50 03:00 03:14 Temperature 97.8 F Pulse Rate 74 Pulse Rate [ 101 H From Monitor] Respiratory 18 Rate Blood Pressure 110/71 111/61 O2 Sat by Pulse 64 L 98 96 Oximetry 01/07/20 01/07/20 01/07/20 04:00 07:56 08:00 Temperature Pulse Rate 83 112 H 124 H Pulse Rate [ From Monitor] Respiratory 18 Rate Blood Pressure 131/86 O2 Sat by Pulse 94 Oximetry 01/07/20 01/07/20 08:05 11:06 Temperature 98.7 F 97.6 F Pulse Rate 95 H Pulse Rate [ From Monitor] Respiratory 16 Rate Blood Pressure 130/86 O2 Sat by Pulse 96 Oximetry - Laboratory Findings CBC and BMP: 01/07/20 05:49 01/07/20 05:49 Abnormal Lab Findings: Abnormal Labs 01/05/20 01/05/20 01/05/20 13:16 13:16 13:16 WBC 12.1 H RBC MCHC 36 H RDW 12.6 L Lymph % (Auto) 12.8 L [place] % (Auto) 10.8 H [place] # 1.3 H Baso # 0.2 H Seg Neutrophils % 75.1 H Seg Neutrophils # 9.1 H PT INR Carbon Dioxide 21 L BUN Creatinine Glucose 104 H AST 134 H ALT 73 H Albumin Ur Specific [place] Salicylates < 0.3 L Acetaminophen 01/05/20 01/05/20 01/05/20 13:16 14:25 14:49 WBC RBC MCHC RDW Lymph % (Auto) [place] % (Auto) [place] # Baso # Seg Neutrophils % Seg Neutrophils # PT 15.2 H INR 1.23 H Carbon Dioxide BUN Creatinine Glucose AST ALT Albumin Ur Specific [place] 1.032 H Salicylates Acetaminophen < 5.0 L 01/07/20 01/07/20 05:49 05:49 WBC RBC 5.05 H MCHC 35 H RDW 12.8 L Lymph % (Auto) [place] % (Auto) 10.3 H [place] # Baso # Seg Neutrophils % Seg Neutrophils # PT INR Carbon Dioxide BUN 6 L Creatinine 0.6 L Glucose AST 56 H ALT Albumin 3.6 L Ur Specific [place] Salicylates Acetaminophen
== END 2020-01-07 14:59 | DRG 885 ==
LOC: ED 12:48 → CC1 18:18 → 4A 01-07 03:02
PROVIDERS: ADMIT Internal Medicine; ATTEND Internal Medicine
DX: F23 Brief psychotic disorder (principal); F10.239 Alcohol dependence with withdrawal, unspecified; F10.231 Alcohol dependence with withdrawal delirium; F19.94 Other psychoactive substance use, unspecified with psychoactive substance-induced mood disorder; I10 Essential (primary) hypertension
CPT/HCPCS: 36415; 70450; 71045; 80053; 80164; 80307; 80320; 81001; 82140; 82150; 84443; 84484; 85025; 85610; 85730; 87086; 90686; G0378; G0480; J1200; J1630; J2060; J3486; J7030